=== PATIENT | female | born 1955 ===

== ENCOUNTER 2018-10-12 14:09 | Outpatient (CLI) | payer MEDICARE, MEDICAID | END 2018-10-12 14:10 | disposition home or self-care (01) | LOC: C.MAMMO 14:09 | DX: Z12.31 Encounter for screening mammogram for malignant neoplasm of breast (principal) ==

== ENCOUNTER 2018-11-02 09:37 | Outpatient (CLI) | payer MEDICARE, MEDICAID | END 2018-11-02 09:38 | disposition home or self-care (01) | LOC: C.PAT 09:37 | DX: Z12.11 Encounter for screening for malignant neoplasm of colon (principal) ==

== ENCOUNTER 2018-11-04 07:42 | Day surgery (SDC) | payer MEDICARE, MEDICAID ==
[2018-11-04 08:18] VITALS: BMI 33.3
[2018-11-04] MEDS ORDERED: Propofol 10 mg/ml Inj (20 ML) ONE ×3 (09:51→10:41)
[2018-11-04 10:53] VITALS: TEMP 96.9
[2018-11-04 11:39] VITALS: BP 131/70; PULSE 68; RESP 10; O2SAT 100
== END 2018-11-04 11:44 | disposition home or self-care (01) ==
LOC: C.ENDO 07:42
PROVIDERS: ATTEND Internal Medicine Gastroenterology
DX: D12.2 Benign neoplasm of ascending colon (principal); Z12.11 Encounter for screening for malignant neoplasm of colon; D12.5 Benign neoplasm of sigmoid colon; D12.3 Benign neoplasm of transverse colon; K64.1 Second degree hemorrhoids; K63.5 Polyp of colon
CPT/HCPCS: 45380; 45385; 82948; 88305; J2704